=== PATIENT | female | born 1995 | race Caucasian/White ===

== ENCOUNTER 2019-09-23 16:42 | Emergency (ER) | payer OTHER ==
[2019-09-23] MEDS ORDERED: NA CHLORIDE 0.9% 2,000 ML ONE (17:48)
[2019-09-23] MEDS ORDERED: CEFTRIAXONE/SWI 1gm 1 GM/10 ML SYR ONE (17:48)
[2019-09-23] MEDS ORDERED: ACETAMINOPHEN 500 MG TAB ONE (17:48)
[2019-09-23 18:03] LABS: Absolute Lymphocytes (CBC) 0.4 K/uL (0.7-4.9); Basophils % 0.8 % (0-1.3); Hematocrit 39.4 % (36.0-45.0); Lymphocytes % 3.2 % (15.3-44.8); MPV 8.7 fL (7.6-11.3); RBC Red Blood Cell Count 5.18 M/uL (3.86-4.86)
[2019-09-23 18:21] LABS: ALT/SGPT 28 U/L (12-78); AST/SGOT 20 U/L (15-37); Albumin 3.6 g/dL (3.4-5.0); Alkaline Phosphatase 94 U/L (45-117); BUN Blood Urea Nitrogen 11 mg/dL (7-18); Bicarbonate 22 mmol/L (21-32); Bilirubin Total 0.9 mg/dL (0.2-1.0); Glucose Level 121 mg/dL (74-106); Potassium 3.6 mmol/L (3.5-5.1); Protein, Total 8.2 g/dL (6.4-8.2); Sodium Level 137 mmol/L (136-145)
--- NOTE | 2019-09-23 18:25 | RAD REPORT ---
EXAM DESCRIPTION: RAD - Chest Pa And Lat (2 Views) - 09/23/2019 6:09 pm CLINICAL HISTORY: FEVER Chest pain. COMPARISON: No comparisons FINDINGS: The lungs are clear. The heart is normal in size. No displaced fractures. IMPRESSION: No acute or concerning finding suspected.
[2019-09-23 18:32] LABS: Blood Morphology Comment NOT SEEN (NOT SEEN); Platelet Estimate ADEQ; Urine White Blood Cell Casts OK
--- NOTE | 2019-09-23 18:32 | RAD REPORT ---
EXAM DESCRIPTION: CT - Stone Protocol - 09/23/2019 6:15 pm CLINICAL HISTORY: Flank pain. Fever;Flank pain COMPARISON: No comparisons TECHNIQUE: Axial images were obtained without oral or IV contrast. Lack of contrast limits solid org an and vascular assessment. The [id number] spans the entirety of the system partially obscuring uppermost abdomen and lung bases. Coronal reformatted images were obtained and reviewed. All CT scans are performed using dose optimization technique as appropriate and may include automated exposure control or mA/KV adjustment according to patient size. FINDINGS: The lower lung ramos are clear. Imaged portions of the liver and spleen show no suspicious findings on non-contrast imaging. The panc reas and adrenal glands are normal. No pathologic lymphadenopathy in the abdomen or pelvis. Punctate caliceal stones left kidney noted without hydronephrosis. Caliceal diverticulum or cyst savage uring 26 mm is noted in the region of the left renal pelvis. There is subtle increased density seen i n the region of the left UPJ. Punctate stone is present inferior calyx right kidney. No hydronephrosi s. Low-density lesion is seen in the inferior pole right kidney measuring 18 mm, incompletely charact erized. No bowel obstruction, free air, free fluid or abscess. Normal appendix noted. No significant bony abnormality. IMPRESSION: Punctate stones are present in both kidneys without hydronephrosis. Subtle increased den sity is seen in the region of the left UPJ which may represent debris.
[2019-09-23 18:36] LABS: Urine Blood 2+ (NEG); Urine Glucose NEGATIVE (NEG); Urine Protein TRACE (NEG); Urine Specific Gravity 1.025 (1.005-1.030)
--- NOTE | 2019-09-23 18:48 | EDPHYS ---
Physician Documentation [facility] Name: Briseida Munoz Age: 24 yrs Sex: Female : 1995 Arrival Date: 09/23/2019 Time: 16:48 Bed 14 Private MD: ED Physician Beto Woo HPI: 09/22 17:19 This 24 yrs old Female presents to ER via Ambulatory with complaints of adelina Fever, Back Pain, Neck Problem. 17:19 The patient reports fever, that was measured at 103 degrees Fahrenheit. Onset: The adelina symptoms/episode began/occurred this morning. Modifying factors: there are no obvious modifying factors. Associated signs and symptoms: Pertinent positives: backache, chills. Severity of symptoms: At their worst the symptoms were moderate in the emergency department the symptoms are unchanged. The patient has not experienced similar symptoms in the past. 18:01 Modifying factors: The symptoms are alleviated by nothing. the symptoms are aggravated adelina by nothing. Associated signs and symptoms: Pertinent positives: dysuria. Severity of pain: At its worst the pain was moderate in the emergency department the pain is unchanged. pt c/o of fever m malaise, bilateral flank pain, 2 plus blood in the urine. 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 - Social history:: Smoking status: Patient/guardian denies using. ROS: 17:20 Eyes: Negative for injury, pain, redness, and discharge, ENT: Negative for injury, adelina pain, and discharge, Neck: Negative for injury, pain, and swelling, Respiratory: Negative for shortness of breath, cough, wheezing, and pleuritic chest pain, Abdomen/GI: Negative for abdominal pain, nausea, vomiting, diarrhea, and constipation, : Negative for injury, bleeding, discharge, and swelling, MS/Extremity: Negative for injury and deformity, Skin: Negative for injury, rash, and discoloration, Neuro: Negative for headache, weakness, numbness, tingling, and seizure, Psych: Negative for depression, anxiety, suicide ideation, homicidal ideation, and hallucinations, Allergy/Immunology: Negative for hives, rash, and allergies, Endocrine: Negative for neck swelling, polydipsia, polyuria, polyphagia, and marked weight changes, Hematologic/Lymphatic: Negative for swollen nodes, abnormal bleeding, and unusual bruising. 17:20 Constitutional: Positive for fever. 17:20 Cardiovascular: Positive for palpitations. 17:20 Abdomen/GI: Negative for abdominal pain. 17:20 Back: Positive for flank pain, bilaterally. 17:20 MS/extremity: Negative for acute changes. Exam: 17:20 Head/Face: Normocephalic, atraumatic. Eyes: Pupils equal round and reactive to light, adelina extra-ocular motions intact. Lids and lashes normal. Conjunctiva and sclera are non-icteric and not injected. Cornea within normal limits. Periorbital areas with no swelling, redness, or edema. ENT: Nares patent. No nasal discharge, no septal abnormalities noted. Tympanic membranes are normal and external auditory canals are clear. Oropharynx with no redness, swelling, or masses, exudates, or evidence of obstruction, uvula midline. Mucous membranes moist. Neck: Trachea midline, no thyromegaly or masses palpated, and no cervical lymphadenopathy. Supple, full range of motion without nuchal rigidity, or vertebral point tenderness. No Meningismus. Chest/axilla: Normal chest wall appearance and motion. Nontender with no deformity. No lesions are appreciated. Cardiovascular: Regular rate and rhythm with a normal S1 and S2. No gallops, murmurs, or rubs. Normal PMI, no JVD. No pulse deficits. Respiratory: Lungs have equal breath sounds bilaterally, clear to auscultation and percussion. No rales, rhonchi or wheezes noted. No increased work of breathing, no retractions or nasal flaring. Abdomen/GI: Soft, non-tender, with normal bowel sounds. No distension or tympany. No guarding or rebound. No evidence of tenderness throughout. Female : Normal external genitalia. Skin: Warm, dry with normal turgor. Normal color with no rashes, no lesions, and no evidence of cellulitis. MS/ Extremity: Pulses equal, no cyanosis. Neurovascular intact. Full, normal range of motion. Neuro: Awake and alert, GCS 15, oriented to person, place, time, and situation. Cranial nerves II-XII grossly intact. Motor strength 5/5 in all extremities. Sensory grossly intact. Cerebellar exam normal. Normal gait. 17:20 Constitutional: The patient appears febrile. 17:20 Back: pain, that is mild, ROM is normal, normal spinal alignment noted, CVA tenderness, that is mild, is noted bilaterally, muscle spasm, is not present. 17:22 Neck: ROM/movement: is normal, no acute changes, Meningeal signs: are not present, adelina Kernig's sign is negative, Brudzinski's sign is negative. 17:22 Cardiovascular: Rate: tachycardic, Rhythm: regular, Pulses: Pulses are 4+ in bilateral radial, brachial, femoral, popliteal, posterior tibial and and dorsalis pedis arteries.. Heart sounds: normal, Edema: is not appreciated, JVD: is not appreciated. Vital Signs: 16:52 BP 138 / 82; Pulse 148; Resp 19; Temp 99.8(O); Pulse Ox 98% on R/A; Weight 99.79 kg tw2 (R); Height 5 ft. 1 in. (154.94 cm); Pain 5/10; 18:26 BP 125 / 85; Pulse 122; Resp 18 S; Temp 98.4(O); Pulse Ox 99% on R/A; iw 19:20 BP 120 / 87; Pulse 114; Resp 18 S; Pulse Ox 99% on R/A; jd3 20:00 BP 132 / 91; Pulse 108; Resp 18 S; Pulse Ox 99% on R/A; jd3 16:52 Body Mass Index 41.57 (99.79 kg, 154.94 cm) tw2 MDM: 16:59 Patient medically screened. [facility] 17:21 Data reviewed: vital signs, nurses notes, lab test result(s), radiologic studies, plain adelina films. 18:51 Differential diagnosis: UTI, diverticulitis, viral Infection, bacterial infection, URI, adelina bronchitis, pneumonia. Data interpreted: leg breaker: rate is 122 beats/min, rhythm is normal sinus rhythm, Pulse oximetry: on room air is 99 %. Test interpretation: by ED physician or midlevel provider: plain radiologic studies. Counseling: I had a detailed discussion with the patient and/or guardian regarding: the historical points, exam findings, and any diagnostic results supporting the discharge/admit diagnosis, lab results, radiology results, the need for outpatient follow up, for definitive care, a family practitioner. ED course: pt much improved, po fluids being tolerated, neck supple , inf a and b negative. 19:59 ED course: pt given levofloxacin in er because family cannot fill meds until late [facility] tomorrow. 09/22 17:19 Order name: CBC with Diff; Complete Time: 18:34 [facility] 09/22 17:19 Order name: Comprehensive Metabolic Panel; Complete Time: 18:24 [facility] 09/22 17:19 Order name: Urine Culture [facility] 09/22 17:19 Order name: Blood Culture Adult (2) [facility] 09/22 18:01 Order name: Flu; Complete Time: 19:53 [facility] 09/22 18:04 Order name: Urine Dipstick--Ancillary (enter results); Complete Time: 18:45 09/22 17:19 Order name: Chest Pa And Lat (2 Views) XRAY; Complete Time: 18:31 [facility] 09/22 18:00 Order name: CT Stone Protocol; Complete Time: 18:45 [facility] 09/22 18:04 Order name: Urine --Ancillary (enter results); Complete Time: 18:45 09/22 18:33 Order name: CBC Smear Scan; Complete Time: 18:34 [facility] 09/22 17:19 Order name: Urine Dipstick-Ancillary (obtain specimen); Complete Time: 18:07 [facility] 09/22 17:19 Order name: Urine Test (obtain specimen); Complete Time: 18:06 [facility] Administered Medications: 17:55 Drug: Rocephin 1 grams Route: IV; Rate: per protocol; Site: left forearm; iw 19:00 Follow up: Response: No adverse reaction; IV Status: Completed infusion jd3 18:25 Drug: NS 0.9% 1000 ml Route: IV; Rate: 1 bolus; Site: left forearm; iw 20:21 Follow up: Response: No adverse reaction; IV Status: Completed infusion; IV Intake: jd3 1000ml 18:25 Drug: Tylenol 1000 mg Route: PO; iw 19:00 Follow up: Response: No adverse reaction jd3 18:25 Drug: NS 0.9% 1000 ml Route: IV; Rate: 1 bolus; Site: left forearm; iw 20:21 Follow up: Response: No adverse reaction; IV Status: Completed infusion; IV Intake: jd3 1000ml 20:20 Drug: LevOfloxacin 500 mg Route: PO; jd3 20:21 Follow up: Response: Medication administered at discharge. jd3 Point of Care Testing: Urine : 17:35 hCG Reading: Negative; Control Reading: Positive; jp3 Disposition: 09/23/19 18:47 Discharged to Home. Impression: Fever, unspecified, Urinary tract infection, site not specified, Hematuria - bilateral nephrolithiasis. - Condition is Stable. - Discharge Instructions: Dysuria, Fever, Adult, Urinary Tract Infection, Adult, Urinary Tract Infection, Adult, [id number], Fever, Adult, [id number]. - Prescriptions for Levaquin 750 mg Oral Tablet - take 1 tablet by ORAL route once daily for 7 days; 7 tablet. - Medication Reconciliation Form, Thank You Letter, Antibiotic Education, Prescription Opioid Use, Work release form form. - Follow up: Private Physician; When: 2 - 3 days; Reason: Recheck today's complaints, Continuance of care, Re-evaluation by your physician. - Problem is new. - Symptoms have improved. Signatures: Dispatcher [employer] [facility] Beto Woo MD MD cha Williams, Irene RN JEAN CLAUDE iw Luz Maria Howe RN RN tw2 Stanford Bruno RN RN jd3 Corrections: (The following items were deleted from the chart) 20:25 18:47 09/23/2019 18:47 Discharged to Home. Impression: Fever, unspecified; Urinary jd3 tract infection, site not specified; Hematuria - bilateral nephrolithiasis. Condition is Stable. Forms are Medication Reconciliation Form, Thank You Letter, Antibiotic Education, Prescription Opioid Use. Follow up: Private Physician; When: 2 - 3 days; Reason: Recheck today's complaints, Continuance of care, Re-evaluation by your physician. Problem is new. Symptoms have improved. adelina
--- NOTE | 2019-09-23 18:48 | ER ---
Nurse's Notes [facility] Name: Briseida Munoz Age: 24 yrs Sex: Female : 1995 Arrival Date: 09/23/2019 Time: 16:48 Bed 14 Private MD: Diagnosis: Fever, unspecified;Urinary tract infection, site not specified;Hematuria-bilateral nephrolithiasis Presentation: 09/22 16:52 Chief complaint: Patient states: about 4 am in the morning i woke up with violent tw2 shivers, spouse got me in shower and i got an appropriate temperature, then i woke up with fever, slept and it keeps coming back and i took tylenol extra strength 2 hours ago and i have a neck pain, i assumed it was from the fever but i called [facility] and they thought it might be my kidneys, i have had urinary problems before but not now, little nauseous. Coronavirus screen: Patient denies a cough. Patient denies shortness of breath or difficulty breathing. Patient reports a measured and/or subjective temperature greater than 100.4F. Patient denies travel on a cruise ship or to a country the [facility] currently lists as an affected area. Patient denies contact with known and/or suspected case of COVID-19. Ebola Screen: Patient denies travel to an Ebola-affected area in the 21 days before illness onset. Initial Sepsis Screen: Does the patient meet any 2 criteria? HR > 90 bpm. No. Patient's initial sepsis screen is negative. Does the patient have a suspected source of infection? No. Patient's initial sepsis screen is negative. Risk Assessment: Do you want to hurt yourself or someone else? Patient reports no desire to harm self or others. Onset of symptoms was September 23, 2019. 16:52 Method Of Arrival: Ambulatory tw2 16:52 Acuity: HELIO 3 tw2 Triage Assessment: 16:57 General: Appears in no apparent distress. Behavior is calm, cooperative, appropriate tw2 for age. Pain: Complains of pain in neck pain. Musculoskeletal: Circulation, motion, and sensation intact. Range of motion: intact in all extremities. 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 - Social history:: Smoking status: Patient/guardian denies using. Screenin:27 Abuse screen: Denies threats or abuse. Denies injuries from another. Nutritional iw screening: No deficits noted. Tuberculosis screening: No symptoms or risk factors identified. Fall Risk IV access (20 points). Assessment: 17:35 General: Appears in no apparent distress. comfortable, Behavior is calm, cooperative. iw General: Reports chills for fever for 12-24 hours, feeling ill for. Pain: Complains of pain in lumbar area. Neuro: Level of Consciousness is awake, alert, obeys commands, Oriented to person, place, time, situation, Moves all extremities. Full function. Cardiovascular: Patient's skin is warm and dry. Respiratory: Respiratory effort is even, unlabored, Respiratory pattern is regular, symmetrical. : Reports pain in lower back. Derm: Skin is intact, is healthy with good turgor. Musculoskeletal: Range of motion: intact in all extremities. 18:26 Reassessment: Patient appears in no apparent distress at this time. Patient and/or iw family updated on plan of care and expected duration. Pain level reassessed. Patient is alert, oriented x 3, equal unlabored respirations, skin warm/dry/pink. 19:21 Reassessment: awaiting pt medication infusion before discharge. Patient states feeling jd3 better. General: Appears in no apparent distress. comfortable, Behavior is calm, cooperative, appropriate for age. Pain: Denies pain. Neuro: Level of Consciousness is awake, alert, obeys commands, Oriented to person, place, time, situation, Moves all extremities. Full function. Cardiovascular: Capillary refill < 3 seconds Patient's skin is warm and dry. Respiratory: Airway is patent Respiratory effort is Respiratory pattern is regular, symmetrical. GI: No signs and/or symptoms were reported involving the gastrointestinal system. : No signs and/or symptoms were reported regarding the genitourinary system. EENT: No signs and/or symptoms were reported regarding the EENT system. Derm: Skin is intact, Skin is dry, Skin is normal, Skin temperature is warm. Musculoskeletal: Circulation, motion, and sensation intact. Range of motion: intact in all extremities. 20:22 Reassessment: Patient appears in no apparent distress at this time. Patient and/or jd3 family updated on plan of care and expected duration. Pain level reassessed. Patient is alert, oriented x 3, equal unlabored respirations, skin warm/dry/pink. Patient states feeling better. Vital Signs: 16:52 BP 138 / 82; Pulse 148; Resp 19; Temp 99.8(O); Pulse Ox 98% on R/A; Weight 99.79 kg tw2 (R); Height 5 ft. 1 in. (154.94 cm); Pain 5/10; 18:26 BP 125 / 85; Pulse 122; Resp 18 S; Temp 98.4(O); Pulse Ox 99% on R/A; iw 19:20 BP 120 / 87; Pulse 114; Resp 18 S; Pulse Ox 99% on R/A; jd3 20:00 BP 132 / 91; Pulse 108; Resp 18 S; Pulse Ox 99% on R/A; jd3 16:52 Body Mass Index 41.57 (99.79 kg, 154.94 cm) tw2 ED Course: 16:48 Patient arrived in ED. mr 16:55 Triage completed. tw2 16:57 Arm band placed on. tw2 16:59 Beto Woo MD is Attending Physician. adelina 17:35 Missed attempt(s): 22 gauge in left forearm. Bleeding controlled, band aid applied, jp3 catheter tip intact. 17:36 Fidelia Salgado, RN is Primary Nurse. iw 17:38 Urine collected: clean catch specimen, clear, alma colored. jp3 17:40 Initial lab(s) drawn, by mn, sent to lab. First set of blood cultures drawn by me. jp3 Inserted saline lock: 22 gauge in left antecubital area, using aseptic technique. Blood collected. 17:50 Second set of blood cultures drawn by me. Patient maintains SpO2 saturation greater jp3 than 95% on room air. 18:04 Chest Pa And Lat (2 Views) XRAY In Process Unspecified. EDMS 18:15 CT Stone Protocol In Process Unspecified. EDMS 19:22 Patient has correct armband on for positive identification. Placed in gown. Bed in low jd3 position. Call light in reach. Side rails up X 1. Adult w/ patient. Pulse ox on. NIBP on. 20:22 No provider procedures requiring assistance completed. IV discontinued, intact, jd3 bleeding controlled, No redness/swelling at site. Pressure dressing applied. Administered Medications: 17:55 Drug: Rocephin 1 grams Route: IV; Rate: per protocol; Site: left forearm; iw 19:00 Follow up: Response: No adverse reaction; IV Status: Completed infusion jd3 18:25 Drug: NS 0.9% 1000 ml Route: IV; Rate: 1 bolus; Site: left forearm; iw 20:21 Follow up: Response: No adverse reaction; IV Status: Completed infusion; IV Intake: jd3 1000ml 18:25 Drug: Tylenol 1000 mg Route: PO; iw 19:00 Follow up: Response: No adverse reaction jd3 18:25 Drug: NS 0.9% 1000 ml Route: IV; Rate: 1 bolus; Site: left forearm; iw 20:21 Follow up: Response: No adverse reaction; IV Status: Completed infusion; IV Intake: jd3 1000ml 20:20 Drug: LevOfloxacin 500 mg Route: PO; jd3 20:21 Follow up: Response: Medication administered at discharge. jd3 Point of Care Testing: Urine : 17:35 hCG Reading: Negative; Control Reading: Positive; jp3 Intake: 20:21 IV: 1000ml; Total: 1000ml. jd3 20:21 IV: 1000ml; Total: 2000ml. jd3 Outcome: 18:47 Discharge ordered by MD. sahu 20:23 Discharged to home ambulatory, with family. jd3 20:23 Condition: stable 20:23 Discharge instructions given to patient, family, Instructed on discharge instructions, follow up and referral plans. medication usage, Demonstrated understanding of instructions, follow-up care, medications, Prescriptions given X 1. 20:25 Patient left the ED. jd3 Signatures: Dispatcher [employer] EDVT Beto Woo MD MD cha Rivera, Fidelia Oseguera, RN Luz Maria Perez RN RN Stanford Forman RN RN jPranav Franks jp3 Corrections: (The following items were deleted from the chart) 19:33 19:21 Reassessment: Patient states feeling better. jd3 jd3
[2019-09-23] MEDS ORDERED: levoFLOXacin 500 MG TAB ONE (20:21)
[2019-09-23 20:36] VITALS: TEMP 98.4; O2SAT 99
[2019-09-23 20:39] VITALS: BP 132/91
== END 2019-09-23 20:25 | disposition home or self-care (01) ==
LOC: ER 16:42
DX: R50.9 Fever, unspecified (principal); N39.0 Urinary tract infection, site not specified; R31.9 Hematuria, unspecified; Z91.018 Allergy to other foods
CPT/HCPCS: 96365; 96361; 87040 ×2; 87088; 85025; 36415; 81025; 81003; 80053; 87804 ×2; 76377; 74176; 71046; 99284; J0696; J7030; 87086